=== PATIENT | female | born 1975 | race Caucasian/White ===

== ENCOUNTER 2020-01-25 23:01 | Emergency (ER) | payer OTHER ==
[~2020-01-25] VITALS: Ht 157.5 cm; Wt 68.0 kg
[2020-01-25] MEDS ORDERED: TRAMADOL 50 MG50 MG PO (23:29)
[2020-01-25] MEDS ORDERED: AMOXICILLIN 50500 MG PO (23:29)
[2020-01-25 23:40] VITALS: BP 144/102
== END 2020-01-25 23:41 | disposition home or self-care (01) ==
LOC: M.ERS 23:01
DX: S02.5XXA Fracture of tooth (traumatic), initial encounter for closed fracture (principal); K02.9 Dental caries, unspecified; I10 Essential (primary) hypertension; E03.9 Hypothyroidism, unspecified; Z98.51 Tubal ligation status; Z88.8 Allergy status to other drugs, medicaments and biological substances; X58.XXXA Exposure to other specified factors, initial encounter; Y93.89 Activity, other specified; Y92.89 Other specified places as the place of occurrence of the external cause; Y99.8 Other external cause status

== ENCOUNTER 2020-02-12 15:28 | Emergency (ER) | payer OTHER ==
[~2020-02-12] VITALS: Ht 157.5 cm; Wt 66.2 kg
[~2020-02-12 15:28] MED LIST: AMOXICILLIN 50500 MG PO; TRAMADOL 50 MG50 MG PO
[2020-02-12] MEDS ORDERED: NAPROSYN500 MG PO (16:03)
[2020-02-12] MEDS ORDERED: CLEOCIN HCL150 MG PO (16:03)
[2020-02-12] MEDS ORDERED: NORCO 5-325 TA1 EAC1 PO (16:03)
[2020-02-12 16:29] VITALS: BP 134/76
== END 2020-02-12 16:30 | disposition home or self-care (01) ==
LOC: M.ERS 15:28
DX: S02.5XXA Fracture of tooth (traumatic), initial encounter for closed fracture (principal); K08.89 Other specified disorders of teeth and supporting structures; I10 Essential (primary) hypertension; E03.9 Hypothyroidism, unspecified; Z98.51 Tubal ligation status; Z88.8 Allergy status to other drugs, medicaments and biological substances; X58.XXXA Exposure to other specified factors, initial encounter; Y93.89 Activity, other specified; Y92.89 Other specified places as the place of occurrence of the external cause; Y99.8 Other external cause status

== ENCOUNTER 2020-02-19 20:36 | Emergency (ER) | payer OTHER ==
[~2020-02-19] VITALS: Ht 157.5 cm; Wt 65.3 kg
[~2020-02-19 20:36] MED LIST changes: +CLEOCIN HCL150 MG PO; +NAPROSYN500 MG PO; +NORCO 5-325 TA1 EAC1 PO
[2020-02-19] MEDS ORDERED: LIDOCAINE VISC100 ML SWISH&SPIT (21:43)
[2020-02-19] MEDS ORDERED: TYLENOL WITH CO1 TA1 PO (21:43)
[2020-02-19] MEDS ORDERED: AMOXICILLIN 50500 MG PO (21:43)
[2020-02-19 22:05] VITALS: BP 151/95
== END 2020-02-19 22:05 | disposition home or self-care (01) ==
LOC: M.ERS 20:36
DX: K04.7 Periapical abscess without sinus (principal); I10 Essential (primary) hypertension; E03.9 Hypothyroidism, unspecified; Z98.51 Tubal ligation status; Z88.8 Allergy status to other drugs, medicaments and biological substances

== ENCOUNTER 2020-02-24 17:55 | Emergency (ER) | payer OTHER ==
[~2020-02-24] VITALS: Ht 157.5 cm; Wt 65.3 kg
[~2020-02-24 17:55] MED LIST changes: +LIDOCAINE VISC100 ML SWISH&SPIT; +TYLENOL WITH CO1 TA1 PO
[2020-02-24] MEDS ORDERED: PERIDEX15 ML SWISH&SPIT (18:28)
[2020-02-24 18:49] VITALS: BP 146/94
== END 2020-02-24 18:50 | disposition home or self-care (01) ==
LOC: M.ERS 17:55
DX: K04.7 Periapical abscess without sinus (principal)

== ENCOUNTER 2020-05-05 11:49 | Emergency (ER) | payer OTHER ==
[~2020-05-05] VITALS: Ht 157.5 cm; Wt 61.2 kg
[~2020-05-05 11:49] MED LIST changes: +PERIDEX15 ML SWISH&SPIT
[2020-05-05] MEDS ORDERED: LIDOCAINE VISC100 ML SWISH&SPIT (12:52)
[2020-05-05] MEDS ORDERED: IBUPROFEN 600600 M1 PO (12:52)
[2020-05-05] MEDS ORDERED: AMOXICILLIN 50500 MG PO (12:52)
[2020-05-05] MEDS ORDERED: APAP W/CODEINE1 TA2 PO (12:52)
[2020-05-05 13:08] VITALS: BP 148/67
== END 2020-05-05 13:09 | disposition home or self-care (01) ==
LOC: M.ERS 11:49
DX: K04.7 Periapical abscess without sinus (principal); I10 Essential (primary) hypertension; E03.9 Hypothyroidism, unspecified; Z98.51 Tubal ligation status; Z88.6 Allergy status to analgesic agent; Z88.8 Allergy status to other drugs, medicaments and biological substances

== ENCOUNTER 2020-06-13 13:56 | Emergency (ER) | payer OTHER, MEDICAID ==
[~2020-06-13] VITALS: Ht 157.5 cm; Wt 59.9 kg
[~2020-06-13 13:56] MED LIST changes: +APAP W/CODEINE1 TA2 PO; +IBUPROFEN 600600 M1 PO
[2020-06-13 14:21] LABS: ABSOLUTE BASOPHILS 0.1 thou/uL (0.0-0.2); ABSOLUTE EOSINOPHILS 0.1 thou/uL (0.0-0.7); ABSOLUTE LYMPHOCYTES 1.4 thou/uL (0.8-5.3); ABSOLUTE MONOCYTES 0.3 thou/uL (0.0-1.2); ABSOLUTE NEUTROPHILS 4.4 thou/uL (1.6-8.1); BASOPHILS 1.5 %; EOSINOPHILS 0.9 %; HEMATOCRIT 32.7 % (37.0-47.0); HEMOGLOBIN 10.4 gm/dL (12.0-15.0); LYMPHOCYTES 21.9 %; MCH 21.7 pg (26.0-34.0); MCHC 31.7 g/dL (28.0-37.0); MCV 68.5 fL (80.0-100.0); MONOCYTES 5.3 %; MPV 8.2 fl. (7.2-11.1); NUCLEATED RBCS 0 /100WBC; PLATELET COUNT* 316 thou/uL (150-400); POLYS 70.4 %; RBC 4.78 mil/uL (4.20-5.00); RDW-CV 16.5 % (10.5-14.5); WBC 6.3 thou/uL (4.0-11.0)
[2020-06-13 14:41] LABS: ALBUMIN 4.3 g/dL (3.4-5.0); CALCIUM 8.7 mg/dL (8.5-10.1); CREATININE 0.9 mg/dL (0.6-1.3); MAGNESIUM 1.8 mg/dL (1.8-2.4); POTASSIUM 3.8 mmol/L (3.5-5.1); TOTAL BILIRUBIN 0.3 mg/dL (<0.1-1.0); TOTAL PROTEIN 8.6 g/dL (6.4-8.2)
[2020-06-13 14:53] LABS: HYPOCHROMASIA 3+; MICROCYTES 2+; PLATELET ESTIMATE ADEQUATE
[2020-06-13 14:54] LABS: ANISOCYTOSIS 2+
[2020-06-13] MEDS ORDERED: COZAAR 25 MG TA25 MG PO (16:10)
[2020-06-13 16:16] VITALS: BP 132/64
--- NOTE | 2020-06-13 16:42 | EKG ---
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
== END 2020-06-13 16:17 | disposition home or self-care (01) ==
LOC: M.ERS 13:56
PROVIDERS: Emergency Medicine Emergency Medical Services
DX: R07.9 Chest pain, unspecified (principal); I10 Essential (primary) hypertension; R20.2 Paresthesia of skin; R06.02 Shortness of breath; E03.9 Hypothyroidism, unspecified; Z98.51 Tubal ligation status; Z88.8 Allergy status to other drugs, medicaments and biological substances

== ENCOUNTER 2020-07-14 06:51 | Emergency (ER) | payer OTHER, MEDICAID ==
[~2020-07-14] VITALS: Ht 157.5 cm; Wt 61.2 kg
[~2020-07-14 06:51] MED LIST changes: +COZAAR 25 MG TA25 MG PO
[2020-07-14] MEDS ORDERED: CLINDAMYCIN (07:17)
[2020-07-14] MEDS ORDERED: DULCOLAX STOOL100 M1 PO (08:52)
[2020-07-14 09:11] VITALS: BP 134/85
== END 2020-07-14 09:11 | disposition home or self-care (01) ==
LOC: M.ERS 06:51
DX: B34.9 Viral infection, unspecified (principal); K59.00 Constipation, unspecified; Z20.828 Contact with and (suspected) exposure to other viral communicable diseases; I10 Essential (primary) hypertension; E03.9 Hypothyroidism, unspecified; Z98.51 Tubal ligation status; Z79.2 Long term (current) use of antibiotics; Z88.8 Allergy status to other drugs, medicaments and biological substances; Z88.0 Allergy status to penicillin

== ENCOUNTER 2020-07-23 13:45 | Emergency (ER) | payer OTHER, MEDICAID ==
[~2020-07-23] VITALS: Ht 157.5 cm; Wt 61.2 kg
[~2020-07-23 13:45] MED LIST changes: +CLINDAMYCIN; +DULCOLAX STOOL100 M1 PO
[2020-07-23 14:25] LABS: URINE BILIRUBIN NEGATIVE (Negative); URINE BLOOD NEGATIVE (Negative); URINE CLARITY CLEAR; URINE COLOR YELLOW; URINE GLUCOSE-RANDOM NEGATIVE (Negative); URINE KETONES NEGATIVE (Negative); URINE LEUKOCYTES-REFLEX NEGATIVE (Negative); URINE NITRITE-REFLEX NEGATIVE (Negative); URINE PROTEIN NEGATIVE (Negative); URINE SPECIFIC GRAVITY 1.015 (1.005-1.030); URINE UROBILINOGEN 0.2 E.U./dl (0.2-1.0)
[2020-07-23 14:47] LABS: ABSOLUTE BASOPHILS 0.1 thou/uL (0.0-0.2); ABSOLUTE EOSINOPHILS 0.1 thou/uL (0.0-0.7); ABSOLUTE LYMPHOCYTES 1.2 thou/uL (0.8-5.3); ABSOLUTE MONOCYTES 0.3 thou/uL (0.0-1.2); ABSOLUTE NEUTROPHILS 4.1 thou/uL (1.6-8.1); BASOPHILS 1.1 %; EOSINOPHILS 1.4 %; HEMATOCRIT 30.9 % (37.0-47.0); HEMOGLOBIN 9.8 gm/dL (12.0-15.0); LYMPHOCYTES 20.2 %; MCH 21.6 pg (26.0-34.0); MCHC 31.6 g/dL (28.0-37.0); MCV 68.3 fL (80.0-100.0); MONOCYTES 5.6 %; MPV 7.7 fl. (7.2-11.1); NUCLEATED RBCS 0 /100WBC; PLATELET COUNT* 318 thou/uL (150-400); POLYS 71.7 %; RBC 4.53 mil/uL (4.20-5.00); WBC 5.7 thou/uL (4.0-11.0)
[2020-07-23 14:58] LABS: CALCIUM 7.8 mg/dL (8.5-10.1); CREATININE 0.9 mg/dL (0.6-1.3); POTASSIUM 3.9 mmol/L (3.5-5.1)
[2020-07-23 15:02] LABS: ALBUMIN 3.6 g/dL (3.4-5.0); TOTAL BILIRUBIN 0.3 mg/dL (<0.1-1.0); TOTAL PROTEIN 7.6 g/dL (6.4-8.2)
[2020-07-23 15:17] LABS: PLATELET ESTIMATE ADEQUATE
[2020-07-23] MEDS ORDERED: ONDANSETRON HCL4 M2 PO (15:17)
[2020-07-23] MEDS ORDERED: PREDNISONE 20 M20 MG PO (15:17)
[2020-07-23 15:18] LABS: HYPOCHROMASIA 2+; MICROCYTES Occasional
[2020-07-23 15:26] VITALS: BP 119/72
--- NOTE | 2020-07-23 17:16 | EKG ---
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 07/23/20 1716 1434 143 Kole Moses MD, FAC /EPI
== END 2020-07-23 15:27 | disposition home or self-care (01) ==
LOC: M.ERS 13:45
PROVIDERS: Nurse Practitioner Family
DX: B34.9 Viral infection, unspecified (principal); Z20.828 Contact with and (suspected) exposure to other viral communicable diseases; R11.2 Nausea with vomiting, unspecified; I10 Essential (primary) hypertension; E03.9 Hypothyroidism, unspecified; Z88.0 Allergy status to penicillin; Z88.6 Allergy status to analgesic agent; Z88.8 Allergy status to other drugs, medicaments and biological substances; Z98.51 Tubal ligation status

== ENCOUNTER 2020-08-16 16:52 | Emergency (ER) | payer OTHER, MEDICAID ==
[~2020-08-16] VITALS: Ht 157.5 cm; Wt 61.2 kg
[~2020-08-16 16:52] MED LIST changes: +ONDANSETRON HCL4 M2 PO; +PREDNISONE 20 M20 MG PO
[2020-08-16 17:00] VITALS: BP 158/98
[2020-08-16] MEDS ORDERED: COZAAR 25 MG TA25 M1 PO (17:02)
[2020-08-16] MEDS ORDERED: APAP W/CODEINE1 TA2 PO ×2 (17:21→17:22)
[2020-08-16] MEDS ORDERED: LIDOCAINE VISC100 ML SWISH&SPIT ×2 (17:21→17:22)
[2020-08-16] MEDS ORDERED: CLEOCIN HCL150 MG PO ×2 (17:21→17:22)
[2020-08-16] MEDS ORDERED: ONDANSETRON HCL4 M2 PO (17:23)
== END 2020-08-16 17:32 | disposition home or self-care (01) ==
LOC: M.ERS 16:52
DX: K04.7 Periapical abscess without sinus (principal); I10 Essential (primary) hypertension; E03.9 Hypothyroidism, unspecified; Z98.51 Tubal ligation status; Z79.899 Other long term (current) drug therapy; Z88.6 Allergy status to analgesic agent; Z88.0 Allergy status to penicillin; Z88.8 Allergy status to other drugs, medicaments and biological substances

== ENCOUNTER 2020-10-15 05:49 | Emergency (ER) | payer OTHER, MEDICAID ==
[~2020-10-15] VITALS: Ht 157.5 cm; Wt 59.0 kg
[~2020-10-15 05:49] MED LIST changes: +COZAAR 25 MG TA25 M1 PO
[2020-10-15] MEDS ORDERED: CLEOCIN HCL300 MG PO (06:43)
[2020-10-15] MEDS ORDERED: IBUPROFEN 800800 MG PO (06:43)
[2020-10-15 06:55] VITALS: BP 143/95
== END 2020-10-15 06:55 | disposition home or self-care (01) ==
LOC: M.ERS 05:49
DX: M25.522 Pain in left elbow (principal); K02.9 Dental caries, unspecified; I10 Essential (primary) hypertension; E03.9 Hypothyroidism, unspecified; Z88.6 Allergy status to analgesic agent; Z88.0 Allergy status to penicillin; Z88.8 Allergy status to other drugs, medicaments and biological substances; Z98.51 Tubal ligation status

== ENCOUNTER 2020-12-21 12:17 | Emergency (ER) | payer OTHER, MEDICAID ==
[~2020-12-21] VITALS: Ht 157.5 cm; Wt 61.7 kg
[~2020-12-21 12:17] MED LIST changes: +CLEOCIN HCL300 MG PO; +IBUPROFEN 800800 MG PO
[2020-12-21] MEDS ORDERED: CLINDAMYCIN HC300 MG PO (12:28)
[2020-12-21] MEDS ORDERED: APAP W/CODEINE1 TA2 PO (12:29)
[2020-12-21 12:42] VITALS: BP 110/68
== END 2020-12-21 12:44 | disposition home or self-care (01) ==
LOC: M.ERS 12:17
DX: K04.7 Periapical abscess without sinus (principal); I10 Essential (primary) hypertension; E03.9 Hypothyroidism, unspecified; Z88.6 Allergy status to analgesic agent; Z88.0 Allergy status to penicillin; Z88.8 Allergy status to other drugs, medicaments and biological substances; Z98.51 Tubal ligation status

== ENCOUNTER 2021-06-22 18:32 | Emergency (ER) | payer OTHER, MEDICAID ==
[~2021-06-22] VITALS: Ht 157.5 cm; Wt 63.5 kg
[~2021-06-22 18:32] MED LIST changes: +CLINDAMYCIN HC300 MG PO
[2021-06-22] MEDS ORDERED: MEDROLDOSEPACK PO (20:00)
[2021-06-22] MEDS ORDERED: HYDROCORTISONE3011 TOP (20:00)
[2021-06-22] MEDS ORDERED: HYDROXYZINE HCL25 M2 PO (20:00)
[2021-06-22 20:08] VITALS: BP 117/65
== END 2021-06-22 20:08 | disposition home or self-care (01) ==
LOC: M.ERS 18:32
DX: L25.9 Unspecified contact dermatitis, unspecified cause (principal); I10 Essential (primary) hypertension; E03.9 Hypothyroidism, unspecified; Z98.51 Tubal ligation status; Z88.5 Allergy status to narcotic agent; Z88.0 Allergy status to penicillin